=== PATIENT | female | born 2000 | race Caucasian/White ===

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

== ENCOUNTER → 2023-09-17 | Outpatient (CLI) | payer OTHER, SELFPAY ==
[2023-09-23 19:57] LABS: HPV Reflexed? NOT INDICATED
== END | disposition home or self-care (01) ==
LOC: LABSPEC 16:40
PROVIDERS: PCP Pediatrics; Referring Provider Obstetrics & Gynecology; Visit Provider Obstetrics & Gynecology
DX: Z12.4 Encounter for screening for malignant neoplasm of cervix (principal)
CPT/HCPCS: 88175; G0145

== ENCOUNTER 2023-10-23 12:15 | Emergency (ER) | payer OTHER, SELFPAY ==
[2023-10-23 12:15] VITALS: BP 105/67; PULSE 87; RESP 16; TEMP 35.6; O2SAT 100; BMI 25.0
--- NOTE | 2023-10-23 12:36 | EDS_ITS ---
HPI <GAGE Bustillos - Last Filed: 10/23/23 15:34> History of Present Illness Chief Complaint: Abd Pain Narrative Narrative: 23-year-old female presents with epigastric pain. Earlier this week her abdomen felt firm after eating she had nausea and felt gaseous. She thought it might be from constipation. She tried to eat more fruits and vegetables and took 1 dose of MiraLAX yesterday. This morning she has not yet eaten but developed epigastric pain and states is the first time it has really felt painful. She has no fever, chills, or vomiting. She has bowel movements every few days and went yesterday but states she has to strain. No melena or hematochezia. No urinary symptoms. No abdominal surgical history. She drinks alcohol on the weekends and last drink about a week ago. PFSH <GAGE Bustillos - Last Filed: 10/23/23 15:34> PFSH Medical History Anxiety Contraceptive management Home Medications ?Medication ?Instructions ?Recorded ?Last Taken ?Type levonorgestrel 14 mcg/24 hr (up to 1 device intrauterine ONCE 08/20/21 Unknown H istory 3 yrs) 13.5 mg intrauterine device (Afia) Allergy/AdvReac Type Severity Reaction Status Date / Time No Known Allergies Allergy Verified 10/23/23 12:16 Family History Grandfather Brain aneurysm Heart disease Social History (Updated 09/17/23 @ 14:25 by Cee Valdes) Smoking Status: Never smoker alcohol intake: never substance use type: does not use caffeine: Yes what type of physical activity do you participate in: weight training frequency: 3-4 times per week seatbelt use: always ROS <GAGE Bustillos - Last Filed: 10/23/23 15:34> ROS ED ROS Narrative Constitutional: Negative for fever, chills, malaise. CVS: Negative for chest pain. Respiratory: Negative for shortness of breath, cough. GI: Positive for abdominal pain, nausea, constipation. Negative vomiting, diarrhea, melena, hematochezia. : Negative for dysuria, hematuria or frequency. EXAM <GAGE Bustillos - Last Filed: 10/23/23 15:34> Physical Exam Narrative Exam Narrative: CONST: Patient sitting in no acute distress. EYES: Normal inspection. NECK: Normal inspection. RESP: No respiratory distress, CTAB. CVS: Regular rate and rhythm, no murmur, no gallop. ABD: Soft with periumbilical tenderness, no guarding or rebound, nondistended, no hepatosplenomegaly. SKIN: Color normal, no rash, warm, dry, intact. EXTREMITIES: Normal appearance, no pedal edema. NEURO: Alert and answering questions appropriately. PSYCH: Normal affect. Const Vital Signs: 10/23/23 12:15 10/23/23 14:15 Temperature 96.1 F L 97.8 F Temperature Source Temporal Pulse Rate 87 80 Respiratory Rate 16 16 Blood Pressure 105/67 121/74 H Blood Pressure Mean 79 89 Pulse Ox 100 100 Oxygen Delivery Method Room Air <Dr. You Johnson DO - Last Filed: 10/23/23 14:13> Physical Exam Const Vital Signs: 10/23/23 12:15 10/23/23 14:15 Temperature 96.1 F L 97.8 F Temperature Source Temporal Pulse Rate 87 80 Respiratory Rate 16 16 Blood Pressure 105/67 121/74 H Blood Pressure Mean 79 89 Pulse Ox 100 100 Oxygen Delivery Method Room Air MDM <GAGE Bustillos - Last Filed: 10/23/23 15:34> [facility] Narrative Medical decision making narrative: History gathered from: Mom and patient Patient reports a few days of mid abdominal pain and history of constipation with last bowel movement yesterday. She appears well nontoxic. Vital signs stable. She has a soft, nonsurgical abdomen. Overall blood work unremarkable. Urinalysis negative. negative. CT scan shows no acute process but does note moderate stool throughout the colon. So far she is only taking 1 dose of MiraLAX yesterday. I recommended she continue this daily, increase fluids and fiber, use Gas-X as needed and follow-up with her primary care doctor. She was discharged in stable condition. I have personally performed a face to face assessment of the patient and have reviewed the XOCHITL Note. I performed a substantive portion of the visit including all aspects of the following. My horton findings include: History is [patient presents with abdominal pain that started this morning. Describes it as kind of mid abdomen. Some nausea but no vomiting. She had somewhat decreased appetite for couple of days. Has been able to eat normally for couple of days because when she eats she feels like she gets very tense in her abdomen and bloated. She denies fevers. Denies vomiting. Denies blood in her stool or black tarry stool. Currently on her menstrual period. She does have an IUD. Denies fevers or chills or sweats.] Exam is [HEENT-PERRLA, EOMI. Cranial nerves II through XII grossly intact. TMs clear. Mucous membranes moist. No adenopathy. Cardiovascular-regular rate and rhythm without murmur or ectopy Lungs-clear to auscultation, chest wall stable without crepitus or subcu emphysema Abdomen-normoactive bowel sounds, soft. Tenderness palpation over the mid abdomen as well as the right lower quadrant with some guarding. There is no rebound, rigidity, or pineal signs. Negative Arroyo sign. Extremities-intact ?4, normal range of motion, normal pulses, atraumatic] Medical Decison Making [IV line established. Patient was given Toradol IV. CBC with differential count of 5.7 hemoglobin 15.5 and platelet count of 254. Chemistries unremarkable. LFTs normal. Lipase normal. Urinalysis normal. hCG was negative. CT scan of the abdomen pelvis with IV contrast was obtained which was essentially unremarkable showed moderate stool and small amount of fluid in the pelvis which could be physiologic. Appendix was normal and no other inflammatory changes noted. This point patient will be discharged to home. She takes MiraLAX currently and she is to continue with that. She can take Gas-X for any gas or cramping.] Other additions or changes: [None] Lab Data Labs: Laboratory Results - last 24 hr 10/23/23 10/23/23 12:45 12:50 WBC 5.7 RBC 4.76 Hgb 15.5 H Hct 45.1 MCV 94.7 MCH 32.6 H MCHC 34.4 RDW Std Deviation 40.2 RDW Coeff of Alek 11.7 Plt Count 254 MPV 9.6 Immature Gran % (Auto) 0.400 Neut % (Auto) 65.9 Lymph % (Auto) 21.2 Glynn % (Auto) 11.6 H Eos % (Auto) 0.7 Baso % (Auto) 0.2 Absolute Neuts (auto) 3.8 Absolute Lymphs (auto) 1.21 Nucleated RBC % 0 Sodium 138 Potassium 3.5 Chloride 106 Carbon Dioxide 26.0 Anion Gap 6 BUN 8 Creatinine 0.75 Estim Creat Clear Calc 111.15 Est GFR (MDRD) Af Amer 125 Est GFR (MDRD) Non-Af 104 BUN/Creatinine Ratio 10.7 Glucose 88 Calcium 8.6 Total Bilirubin 0.70 AST 13 L ALT 17 Alkaline Phosphatase 70 Total Protein 7.1 Albumin 3.7 Globulin 3.4 Albumin/Globulin Ratio 1.1 Lipase 23 Urine Color Yellow Urine Clarity Clear Urine pH 6.0 Ur Specific [place] 1.010 Urine Protein Negative Urine Glucose (UA) Normal Urine Ketones 50 H Urine Occult Blood 250 H Urine Nitrite Negative Urine Bilirubin Negative Urine Urobilinogen 4 H Ur Leukocyte Esterase Negative Urine RBC 0-5 SEEN Urine WBC 0 SEEN Ur Squamous Epith Cells Not Reportable Urine Bacteria 0 SEEN Urine Mucus 0 SEEN Urine Test Negative Radiography Diagnostic Testing: Clinical Impression(s) from Imaging Studies Abdomen/Pelvis CT 10/23/23 13:13 IMPRESSION: No acute abnormality identified. Moderate stool in the colon. Electronically Signed: Olena Nunez MD at 14:07 EDT , <Dr. You Johnson, DO - Last Filed: 10/23/23 14:13> [facility] Narrative Medical decision making narrative: I have personally performed a face to face assessment of the patient and have reviewed the XOCHITL Note. I performed a substantive portion of the visit including all aspects of the following. My horton findings include: History is [patient presents with abdominal pain that started this morning. Describes it as kind of mid abdomen. Some nausea but no vomiting. She had somewhat decreased appetite for couple of days. Has been able to eat normally for couple of days because when she eats she feels like she gets very tense in her abdomen and bloated. She denies fevers. Denies vomiting. Denies blood in her stool or black tarry stool. Currently on her menstrual period. She does have an IUD. Denies fevers or chills or sweats.] Exam is [HEENT-PERRLA, EOMI. Cranial nerves II through XII grossly intact. TMs clear. Mucous membranes moist. No adenopathy. Cardiovascular-regular rate and rhythm without murmur or ectopy Lungs-clear to auscultation, chest wall stable without crepitus or subcu emphysema Abdomen-normoactive bowel sounds, soft. Tenderness palpation over the mid abdomen as well as the right lower quadrant with some guarding. There is no rebound, rigidity, or pineal signs. Negative Arroyo sign. Extremities-intact ?4, normal range of motion, normal pulses, atraumatic] Medical Decison Making [IV line established. Patient was given Toradol IV. CBC with differential count of 5.7 hemoglobin 15.5 and platelet count of 254. Chemistries unremarkable. LFTs normal. Lipase normal. Urinalysis normal. hCG was negative. CT scan of the abdomen pelvis with IV contrast was obtained which was essentially unremarkable showed moderate stool and small amount of fluid in the pelvis which could be physiologic. Appendix was normal and no other inflammatory changes noted. This point patient will be discharged to home. She takes MiraLAX currently and she is to continue with that. She can take Gas-X for any gas or cramping.] Other additions or changes: [None] Lab Data Attestation: I reviewed the patient's lab results. Labs: Laboratory Results - last 24 hr 10/23/23 10/23/23 12:45 12:50 WBC 5.7 RBC 4.76 Hgb 15.5 H Hct 45.1 MCV 94.7 MCH 32.6 H MCHC 34.4 RDW Std Deviation 40.2 RDW Coeff of Alek 11.7 Plt Count 254 MPV 9.6 Immature Gran % (Auto) 0.400 Neut % (Auto) 65.9 Lymph % (Auto) 21.2 Glynn % (Auto) 11.6 H Eos % (Auto) 0.7 Baso % (Auto) 0.2 Absolute Neuts (auto) 3.8 Absolute Lymphs (auto) 1.21 Nucleated RBC % 0 Sodium 138 Potassium 3.5 Chloride 106 Carbon Dioxide 26.0 Anion Gap 6 BUN 8 Creatinine 0.75 Estim Creat Clear Calc 111.15 Est GFR (MDRD) Af Amer 125 Est GFR (MDRD) Non-Af 104 BUN/Creatinine Ratio 10.7 Glucose 88 Calcium 8.6 Total Bilirubin 0.70 AST 13 L ALT 17 Alkaline Phosphatase 70 Total Protein 7.1 Albumin 3.7 Globulin 3.4 Albumin/Globulin Ratio 1.1 Lipase 23 Urine Color Yellow Urine Clarity Clear Urine pH 6.0 Ur Specific [place] 1.010 Urine Protein Negative Urine Glucose (UA) Normal Urine Ketones 50 H Urine Occult Blood 250 H Urine Nitrite Negative Urine Bilirubin Negative Urine Urobilinogen 4 H Ur Leukocyte Esterase Negative Urine RBC 0-5 SEEN Urine WBC 0 SEEN Ur Squamous Epith Cells Not Reportable Urine Bacteria 0 SEEN Urine Mucus 0 SEEN Urine Test Negative Radiography Diagnostic Testing: Clinical Impression(s) from Imaging Studies Abdomen/Pelvis CT 10/23/23 13:13 IMPRESSION: No acute abnormality identified. Moderate stool in the colon. Electronically Signed: Olena Nunez MD at 14:07 EDT Reading Location ID and State: [facility] / [place] Tel , Service support , Discharge Plan Triage Chief Complaint: Abd Pain ED Midlevel Provider: Damaris Zamora ED Provider: You Johnson Dx/Rx/DC Orders Clinical Impression: Abdominal pain, Constipation Instructions: Abdominal Pain, ED Constipation (Adult) Prescriptions: No Action Afia 14 mcg/24 hrs (3 yrs) 13.5 mg intrauterine device 1 device intrauterine ONCE Rx Instructions: as a single dose Primary Care Provider: Roberto Montes Referrals: Roberto Montes MD [Primary Care Provider] - Activity Restrictions/Additional Instructions: Your blood work and CT scan look normal. There is a moderate amount of stool throughout your colon and she may be having discomfort from constipation. You can continue MiraLAX once daily and increase fiber. Fiber 1 bar or fiber cereal also may be beneficial. Print Language: Qatari Disposition Disposition: Home, Self Care Discharge Date/Time: 10/23/23 14:33
[2023-10-23] MEDS: Ketorolac 15 MG/ML Vial IV (12:46)
[2023-10-23 12:59] LABS: Bacteria 0 SEEN /hpf (None Seen); Mucous, Urine 0 SEEN /hpf (<or=2+); White Blood Cells 0 SEEN /hpf (0-5)
[2023-10-23 13:00] LABS: Absolute Lymphocyte Count 1.21 X10^3/uL (0.83-4.51); Absolute Neutrophil Count 3.8 X10^3/uL (2.0-7.7); Basophil# 0.01 X10^3/uL; Basophil% 0.2 % (0-1); Eosinophil# 0.04 X10^3/uL; Eosinophils% 0.7 % (0-5); Hematocrit 45.1 % (37-47); Hemoglobin 15.5 g/dL (12.0-15.0); Lymphocyte # 1.21 X10^3/ul (0.83-4.51); Lymphocyte % 21.2 % (19-41); Mean Corp Hgb Conc 34.4 g/dL (32-36); Mean Corpuscular Hgb 32.6 pg (27.0-32.0); Mean Corpuscular Volume 94.7 fL (81-99); Mean Platelet Vol. 9.6 fl (6.2-12.0); Monocyte# 0.66 X10^3/uL; Monocyte% 11.6 % (0-10); NRBC Flagged by Analyzer 0 % (0-5); Neutrophil # 3.77 X10^3/uL (2.7-7.7); Neutrophil % 65.9 % (47-70); Platelet Count 254 K/mm3 (150-450); RBC Distribution Width CV 11.7 % (11.6-14.6); RBC Distribution Width SD 40.2 fl (35.1-43.9); Red Blood Count 4.76 M/mm3 (4.2-5.4); White Blood Count 5.7 K/mm3 (4.4-11.0)
[2023-10-23 13:01] LABS: Color, Urine Yellow (Yellow); Glucose, Dipstick Normal (Normal); Ketone-Dipstick 50 mg/dl (Negative); Leukocyte Esterase-Dipstick Negative /ul (Negative); Nitrite-Dipstick Negative (Negative); Occult Blood-Urine 250 /ul (Negative); Protein-Dipstick Negative (Negative); Urine Bilirubin Dipstick Negative (Negative); Urine Clarity Clear (Clear); Urine Urobilinogen 4 mg/dl (Normal)
[2023-10-23 13:07] LABS: Internal QC Validated? YES +Cl - CLEAR BKGD; Pregnancy, Urine Negative Negative; Red Blood Cells-Urine 0-5 SEEN /hpf (0-5)
--- NOTE | 2023-10-23 13:13 | CT_ITS ---
HISTORY: abdominal pain. TECHNIQUE: Helically acquired images were obtained of the abdomen and pelvis after the intravenous administration of 75 mL Isovue-370. A radiation dose optimization technique was used for this scan. 384 images. COMPARISON: None. FINDINGS: LOWER CHEST: Lung bases clear. BOWEL: Bowel including appendix nondilated. Moderate stool in the colon. No focal pericolonic inflammatory change observed. LIVER: No enhancing mass. GALLBLADDER/BILIARY TREE: Gallbladder present. SPLEEN/PANCREAS: Homogeneous and nonenlarged. KIDNEYS/ADRENAL GLANDS: Unremarkable. VESSELS: Normal caliber and contour of the abdominal aorta. PELVIC ORGANS: Intrauterine device in place. Trace free fluid in the pelvis, which can be physiological. BONES: Intact. CT/Abdomen/Pelvis W IV Cont ONLY IMPRESSION: No acute abnormality identified. Moderate stool in the colon. Electronically Signed: Olena Nunez MD at 14:07 EDT ,
[2023-10-23 13:20] LABS: ALB/GLOB Ratio 1.1 RATIO (0.9-2.4); AST(SGOT) 13 U/L (15-37); Alanine Aminotransfer ALT/SGPT 17 U/L (13-56); Albumin, Serum 3.7 g/dL (3.2-5.0); Alkaline Phosphatase 70 U/L (45-117); Anion Gap 6 (5-15); BUN 8 mg/dL (7-18); BUN/Creat Ratio 10.7 RATIO (10-20); Calcium,Total 8.6 mg/dL (8.5-10.1); Chloride 106 mmol/L (98-107); Creatinine, Serum 0.75 mg/dL (0.55-1.02); EST Glomerular Filtration Rate 104 mL/min (>60); Est Glom Filt Rate - Afr Amer 125 mL/min (>60); Estimated Creatinine Clearance 111.15 ml/min; Globulin 3.4 g/dL (2.2-4.2); Glucose 88 mg/dL (74-106); Lipase 23 U/L (13-75); Potassium 3.5 mmol/L (3.5-5.1); Protein, Total 7.1 g/dL (6.4-8.2); Sodium Level 138 mmol/L (136-145)
[2023-10-23 14:15] VITALS: BP 121/74; PULSE 80; RESP 16; TEMP 36.6; O2SAT 100
== END 2023-10-23 14:33 | disposition home or self-care (01) ==
PROVIDERS: Physician Assistant; Emergency Provider Emergency Medicine; PCP Pediatrics; Visit Provider Emergency Medicine
DX: R10.31 Right lower quadrant pain (principal); R10.13 Epigastric pain; K59.00 Constipation, unspecified; Z97.5 Presence of (intrauterine) contraceptive device
CPT/HCPCS: 74177; 80053; 81001; 81025; 83690; 85025; 96374; 99282; Q9967; A4216

== ENCOUNTER 2024-03-25 23:38 | Emergency (ER) | payer OTHER, SELFPAY ==
[2024-03-25 23:39] VITALS: BP 109/70; BP 124/67; PULSE 111; PULSE 117; RESP 16; TEMP 36.5; O2SAT 100; O2SAT 99; BMI 26.6
--- NOTE | 2024-03-25 23:52 | EX.ED.SAOD ---
HPI History of Present Illness Chief Complaint: ETOH Intox Informant: patient and EMS Narrative Narrative: healthy 24-year-old female at about [employer], drank too much alcohol, and EMS was called because friends were having trouble waking her up. For EMS she was responsive. They gave her Zofran. She has vomited twice since then and she states she feels okay otherwise. She is able to tell me that she was [place] [employer] for the democrat, from [place] [employer]. [facility] Medical History Contraceptive management Anxiety Home Medications ?Medication ?Instructions ?Recorded ?Last Taken ?Type levonorgestrel 14 mcg/24 hr (up to 1 device intrauterine ONCE 08/20/21 Unknown History 3 yrs) 13.5 mg intrauterine device (Afia) biotin 5 mg capsule 5 mg PO DAILY 03/26/24 Unknown History Allergy/AdvReac Type Severity Reaction Status Date / Time No Known Allergies Allergy Verified 03/25/24 23:53 Family History Grandfather Brain aneurysm Heart disease Social History Smoking Status: Never smoker alcohol intake: never substance use type: does not use caffeine: Yes what type of physical activity do you participate in: weight training frequency: 3-4 times per week seatbelt use: always ROS ROS ED Constitutional Constitutional ED: Reports lethargy; Denies chills or fever(s) Eyes Eyes: Denies change in vision or diplopia ENT ENT ED: Denies rhinorrhea or sore throat Cardiovascular Cardiovascular: Denies chest pain or palpitations Respiratory/Chest Respiratory/Chest: Denies cough or dyspnea Gastrointestinal Gastrointestinal: Reports nausea and vomiting; Denies abdominal pain or diarrhea Genitourinary Genitourinary ED: Denies dysuria or hematuria Musculoskeletal Musculoskeletal: Denies back pain or neck pain Integumentary Denies abscess or rash Neurologic Neurologic: Denies headache(s), paresthesias or weakness Psychiatric Psychiatric: Denies suicidal thoughts EXAM Physical Exam Const Vital Signs: 03/25/24 23:39 03/25/24 23:39 03/25/24 23:54 Temperature 97.7 F L 97.7 F L Temperature Source Temporal Oral Pulse Rate 117 H 111 H Respiratory Rate 16 16 Respiratory Effort Normal Non-Labored Blood Pressure 124/67 H 109/70 Blood Pressure Mean 86 83 Blood Pressure Source Monitor Blood Pressure Position Semi-Fowlers Blood Pressure Location Right Arm Pulse Ox 99 100 Oxygen Delivery Method Room Air Room Air Room Air 03/26/24 00:39 03/26/24 01:00 03/26/24 02:00 Temperature Temperature Source Pulse Rate 83 92 84 Respiratory Rate 16 16 Respiratory Effort Blood Pressure 98/61 111/73 91/51 L Blood Pressure Mean 73 85 64 Blood Pressure Source Blood Pressure Position Blood Pressure Location Pulse Ox 93 95 91 Oxygen Delivery Method Room Air Room Air Room Air 03/26/24 03:00 03/26/24 04:00 03/26/24 05:00 Temperature Temperature Source Pulse Rate 95 87 70 Respiratory Rate 16 16 16 Respiratory Effort Blood Pressure 99/52 L 105/47 L 116/65 Blood Pressure Mean 67 66 82 Blood Pressure Source Blood Pressure Position Blood Pressure Location Pulse Ox 77 91 93 Oxygen Delivery Method Room Air Room Air Room Air 03/26/24 06:00 03/26/24 06:31 Temperature 98.2 F Temperature Source Pulse Rate 72 102 H Respiratory Rate 16 16 Respiratory Effort Blood Pressure 102/57 L 106/51 L Blood Pressure Mean 72 69 Blood Pressure Source Blood Pressure Position Blood Pressure Location Pulse Ox 92 93 Oxygen Delivery Method Room Air Positive well nourished and well developed Constitutional Narrative: Somnolent, intoxicated, conversive and smiling General Appearance ED: well developed and NAD HEENT Reports moist mucous membranes normocephalic and atraumatic Eyes PERRL and EOMs intact bilaterally Neck full ROM and supple Resp normal respiratory effort and clear to auscultation bilaterally Cardio regular rate, regular rhythm and no murmurs GI non-tender and non-distended Auscultation: normoactive bowel sounds Palpation: soft Back/Spine no CVA tenderness General Back: other FROM Extremity normal to inspection General Extremety ED: Negative for edema, pulses abnormal or tenderness General Extremity: Negative for edema or pulses abnormal Neuro oriented x3, CN's II-XII intact bilaterally and no sensory deficits noted Neuro Narrative: Somnolent but awake. Conversive with me and staff and smiling with her eyes closed. Sensorium / Orientation: awake Motor Exam: strength 5/5 throughout Psych Psych Narrative: Intoxicated but otherwise normal thought processes. Able to converse. Skin no rashes or lesions noted and no wounds MDM MDM MDM Narrative Medical decision making narrative: At initial evaluation patient coherent just intoxicated. After getting antiemetics and resting, she had no more vomiting and rested in the ED. Vital signs normal with normal pupillary exam, not suicidal, no reason to suspect coingestants here at this time. We observed her starting at 0030. A multiple recheck she was sleeping comfortably with stable vital signs, airway, breathing, and pulses. Plan will be to continue observing her until she is either awake enough to ambulate without assistance and have Security or family to take her home. At 0630, patient is awake, conversive, coherent, feeling much better, denies having headache, her vital signs are normal, her mother is here and I spoke with both of them, and she is comfortable taking her back to her dorm. Discharge Plan Triage Chief Complaint: ETOH Intox ED Provider: Remberto Henley Dx/Rx/DC Orders Clinical Impression: Alcohol intoxication Instructions: ED Alcohol Intoxication Prescriptions: No Action Afia 14 mcg/24 hrs (3 yrs) 13.5 mg intrauterine device 1 device intrauterine ONCE Rx Instructions: as a single dose biotin 5 mg capsule 5 mg PO DAILY Primary Care Provider: Care Physician,No Primary Referrals: Roberto Montes MD [Non-Staff] - Print Language: Romanian Disposition Disposition: Home, Self Care
[2024-03-25 23:54] VITALS: O2SAT 100
[2024-03-26] VITALS (8 sets, daily range): BP systolic 91–116; BP diastolic 47–73; PULSE 70–102; RESP 16; TEMP 36.8; O2SAT 77–95
--- OUTSIDE RECORDS SUMMARY | 2024-03-26 00:16 | XMS RPT_ITS | CCD ---
Author Organization [facility] Inform ion Partnership [facility] Care Team Providers Care Tire Room Supervisor Name Role Phone EMILY CANCHOLA Referring Unavailable EMILY CANCHOLA Primary Care Unavailable EMILY CANCHOLA Admitting Unavailable Gloria Padron MD Primary Care Provider Gloria Padron MD Primary Care Provider CINDI GODOY Attending Unavailable GLORIA PADRON Primary Care Unavailable GLORIA PADRON Primary Care Unavailable Medications Current Medications Medication Drug Class(es) Dates Sig (Normalized) Sig (Original) 200 actuat albuterol 0.09 mg/actuat dry powder inhaler (2 sources) beta2-Adrenergic Agonist Start: 05-03-2019 albuterol sulfate (PROAIR RESPICLICK) 90 mcg/actuation aepb 2 inhalations every 4 hours prn cough/wheeze. May use 15 minutes prior to exercise. 1 Inhaler 0 05/03/2019 Active Comment on above: 2 inhalations every 4 hours prn cough/wheeze. May use 15 minutes prior to exercise. 21 day ethinyl estradiol 0.032387 mg/hr / etonogestrel 0.005 mg/hr vaginal system (2 sources) Progestin, Estrogen Etonogestrel-Ethin yl Estradiol (NUVARING) 0.12-0.015 mg/24 hr vaginal ring Use 1 Each vaginally as directed. Insert vaginally and leave in place for 3 consecutive weeks, then remove for 1 week. 0 Active Comment on above: Use 1 Each vaginally as directed. Insert vaginally and leave in place for 3 consecutive weeks, then remove for 1 week. lansoprazole 30 mg delayed release oral capsule (2 sources) Proton Pump Inhibitor Start: 09-08-2018 take 1 capsule by mouth once daily lansoprazole (PREVACID) 30 mg capsule Take 1 capsule by mouth once daily. 90 capsule 0 09/08/2018 Active Comment on above: Take 1 capsule by mo uth once daily. montelukast 10 mg oral tablet (2 sources) Leukotriene Receptor Antagonist Start: 11-27-2019 take 1 tablet by mouth once daily at bedtime montelukast (SINGULAIR) 10 mg tablet TAKE 1 TABLET BY MOUTH EVERYDAY AT BEDTIME 90 tablet 3 11/27/2019 Active Comment on above: TAKE 1 TABLET BY ANUP TH EVERYDAY AT BEDTIME PEDIATRIC MULTIVIT COMB #19/FA (CHILDREN'S MULTI-VIT GUMMIES ORAL) (2 sources) take 2 tablets by mouth once daily PEDIATRIC MULTIVIT COMB #19/FA (CHILDREN'S MULTI-VIT GUMMIES ORAL) Take 2 tablets by mouth once daily. 0 Active Comment on above: Take 2 tablets by mo uth once daily. Problems Problem Classification Problem Date Documented Da te Episodic/Chronic Abdominal pain (2 sources) Generalized abdominal pain; Translations: [Generalized abdominal pain] Onset: 10-23-2023 10-23-2023 Episodic Other upper respiratory infections (1 source) Sore throat symptom; Translations: [Acute pharyngitis, unspecified] 09-24-2023 Episodic Results Test Name Value Interpretation Reference Range Facil ity CNOVon 10-23-2023 CNOV Office Visit ([facility]) TRAVIS SANTIAGO ([id number]) 4 F Date Time Provider Department 10/23/23 12:30 PM CINDI GODOY [facility] During your visit today, we recorded the following information about you: Cindi Godoy APRN.PLASTICS FABRICATOR 10/23/2023 12:13 PM Signed Request to triage patient who presents for abdominal pain. Patient reports worsening pain over the last three days that is worse when walking. Pain is so bad she can not sit up straight without pain increasing. Patient sent to ER for more thorough evaluation. Allergies As of Date: 10/23/2023 (No Known Allergies) Date Reviewed: 09/24/2023 Reviewed by: Karla Munoz - Fully Assessed Primary Visit Diagnosis:Generalize d abdominal pain [R10.84] Prescriptions as of 10/23/2023 - montelukast (SINGULAIR) 10 mg tablet TAKE 1 TABLET BY MOUTH EVERYDAY AT BEDTIME - albuterol sulfate (PROAIR RESPICLICK) 90 mcg/actuation aepb 2 inhalations every 4 hours prn cough/wheeze. May use 15 minutes prior to exercise. - lansoprazole (PREVACID) 30 mg capsule Take 1 capsule by mouth once daily. - Etonogestrel-Ethinyl Estradiol (NUVARING) 0.12-0.015 mg/24 hr vaginal ring Use 1 Each vaginally as directed. Insert vaginally and leave in place for 3 consecutive weeks, then remove for 1 week. - PEDIATRIC MULTIVIT COMB #19/FA (CHILDREN'S MULTI-VIT GUMMIES ORAL) Take 2 tablets by mouth once daily. Problem List As Of Date: 10/23/2023 (None) Disposition: Return if symptoms worsen or fail to improve. Follow-up and Disposition History for Encounter Date Provider Department Center 10/23/2023 [id number] GODOY [facility] Encounter Status:Closed by CINDI GODOY on 10/23/23 [facility] CNOVon 09-24-2023 CNOV Office Visit (UCWSTR) TRAVIS SANTIAGO ([id number]) 4 F Date Time Provider Department 09/24/23 7:00 PM CORNELIO MAHMOOD [facility] During your visit today, we recorded the following information about you: Temperature Pulse Respiration Blood pressure 98.5 degrees 88/minute 16/minute 120/61 Weight 68.8 kg Cornelio Mahmood PA 09/24/2023 7:13 PM Signed This note was created using NoteWriter. Subjective Travis Santiago is a 23 year old female. HPI 23-year-old female presents for sore throat x 2 days. Patient states yesterday she started getting sore throat. She states that her lymph nodes felt swollen. Today she knows she had some white patches on her tonsils. No fevers. No cough, congestion or other URI symptoms. No vomiting or diarrhea. She denies any sick contacts. PAST MEDICAL HISTORY Diagnosis Date NEGATIVE MEDICAL HISTORY PAST SURGICAL HISTORY Procedure Laterality Date NONE ALLERGIES Patient has no known allergies. MEDICATIONS montelukast (SINGULAIR) 10 mg tablet TAKE 1 TABLET BY MOUTH EVERYDAY AT BEDTIME (Patient not taking: Reported on 09/24/2023) albuterol sulfate (PROAIR RESPICLICK) 90 mcg/actuation aepb 2 inhalations every 4 hours prn cough/wheeze. May use 15 minutes prior to exercise. lansoprazole (PREVACID) 30 mg capsule Take 1 capsule by mouth once daily. Etonogestrel-Ethinyl Estradiol (NUVARING) 0.12-0.015 mg/24 hr vaginal ring Use 1 Each vaginally as directed. Insert vaginally and leave in place for 3 consecutive weeks, then remove for 1 week. (Patient not taking: Reported on 09/24/2023) PEDIATRIC MULTIVIT COMB #19/FA (CHILDREN'S MULTI-VIT GUMMIES ORAL) Take 2 tablets by mouth once daily. FAMILY HISTORY Problem Relation Age of Onset Aneurysm Paternal Grandfather 37 Social History Tobacco Use Smoking status: Never Smokeless tobacco: Never Review of Systems Constitutional: Negative for chills and fever. HENT: Positive for sore throat. Negative for congestion and ear pain. Respiratory: Negative for cough and shortness of breath. Cardiovascular: Negative for chest pain. Gastrointestinal: Negative for diarrhea and vomiting. Objective BP 120/61 Pulse 88 Temp 36.9 ?C (98.5 ?F) Resp 16 Wt 68.8 kg (151 lb 10.8 oz) LMP 10/14/2018 SpO2 98% Physical Exam Vitals and nursing note reviewed. Constitutional: General: She is not in acute distress. Appearance: Normal appearance. She is not toxic-appearing. HENT: Right Ear: Tympanic membrane and ear canal normal. Left Ear: Tympanic membrane and ear canal normal. Nose: Nose normal. Mouth/Throat: Mouth: Mucous membranes are moist. Pharynx: Uvula midline. Posterior oropharyngeal erythema present. No oropharyngeal exudate. Tonsils: Tonsillar exudate present. No tonsillar abscesses. 2+ on the right. 2+ on the left. Eyes: Conjunctiva/sclera: Conjunctivae normal. Cardiovascular: Rate and Rhythm: Normal rate and regular rhythm. Pulmonary: Effort: Pulmonary effort is normal. Breath sounds: Normal breath sounds. No wheezing, rhonchi or rales. Lymphadenopathy: Cervical: Cervical adenopathy present. Right cervical: Superficial cervical adenopathy present. Left cervical: Superficial cervical adenopathy present. Neurological: Mental Status: She is alert. Assessment and Plan ASSESSMENT/PLAN: 1. Sore throat - ICD9: 462, ICD10: J02.9 - suspect viral - Group A strep molecular testing negative - Discussed supportive care treatment with fluids, rest and analgesia. - The patient may also use warm salt water gargles, throat lozenges and/or OTC throat spray as needed. -Discussed possibility of mono, although patient has only had symptoms x 1 day, test would likely be negative at this point. - Recommend follow-up in 1 week if symptoms do not improve. Diagnosis and treatment plan were discussed and questions were answered to the patient's satisfaction. Pt acknowledged understanding of concepts and follow up plan. Specific signs and symptoms that would indicate the need for higher level of care were discussed in detail warranting prompt ER evaluation. GAGE Parrish Krislyn P, PA 09/24/2023 7:08 PM Signed PHARYNGITIS PATIENT INSTRUCTIONS DESCRIPTION: Inflammation and infection of the pharynx that can be caused by a variety of germs. SIGNS AND SYMPTOMS: -Sore throat. -Swallowing difficulty. -Tickle or lump in the throat. -Fever. -Swollen glands in the neck (sometimes). -Throat may be red or covered with a grayish membrane (sometimes). -Generalized aching. CAUSES: Infection from bacteria, viruses or fungi. PREVENTIVE MEASURES: -Avoid close contact with anyone with a sore throat. -Keep immunizations, including diphtheria, up to date. TREATMENT: -Laboratory throat culture and blood count may be done to determine type of infection. -Home c (more content not included)... Normal [facility] STREP A MOLECULAR (POC)on Procedural Control Valid [facility] Strep A (POCT) Negative Negative [facility] COVID-19/INFLUENZA A,B MOLEC Anurag 06-23-2021 SARS-CoV-2 (COVID-19) Ab IA Ql SARS-COV-2 RNA (SANTHOSH): Detected INFLUENZA A (SANTHOSH): Not Detected INFLUENZA B (SANTHOSH): Not Detected Normal Not Detected [facility] Comment on above: Order Comment: This test was performed under the FDA's Emergency Use Authorization (EUA). Testing was performed using the Samir SARS-CoV-2 RT-PCR AND Influenza A/B assay on the Santhosh Samir 6800 System. This test has not been approved for use in asymptomatic patients and its performance in this patient population has not been evaluated. Negative results do not rule out the presence of SARS-CoV-2/COVID-19, influenza A, and/or influenza B. Fact sheets for this EUA can be found at the following links: For Healthcare Providers: https://www.fda.gov/media/691955/download ?? For Patients: https://www.fda.gov/media/643619/download Performed By: #### L [id number] #### [facility] [address] [place] [address] Jsu Ferreira M.D. [id number] Vital Signs Date Time Vital Sign Value Performing Clinician Neyda jama 09-24-2023 18:58-0400 Body temperature 98.49 [degF] Cornelio Mahmood PA Work Phone: [facility] 09-24-2023 18:58-0400 Body weight 68.8 kg Krevelin Mahmood PA Work Phone: [facility] 09-24-2023 18:58-0400 Diastolic blood pressure 61 mm[Hg] Cornelio Mahmood PA Work Phone: [facility] 09-24-2023 18:58-0400 Heart rate 88 /min Cornelio Mahmood PA Work Phone: [facility] 09-24-2023 18:58-0400 Respiratory rate 16 /min Cornelio ALMONTE Work Phone: [facility] 09-24-2023 18:58-0400 SaO2% (BldA) [Mass fraction] 98 % Cornelio ALMONTE Work Phone: [facility] 09-24-2023 18:58-0400 Systolic blood pressure 120 mm[Hg] Cornelio ALMONTE Work Phone: [facility] Encounters Encounter Date Encounter Type Care Provider Facility Start: 10-23-2023 End: 10-25-2023 ambulatory CINDI GODOY Facility:[facility] Start: 10-23-2023 End: 10-23-2023 Patient encounter procedure Cindi Godoy MOBILE SECURITY ARCHITECT.PLASTICS FABRICATOR Work Phone: [facility] Comment on above: Generalized abdomina l pain (Primary Dx) Start: 09-24-2023 End: 09-24-2023 ambulatory GLORIA Zuleyma VITO Facility:[facility] Start: 09-24-2023 End: 09-24-2023 Patient encounter procedure Cornelio ALMONTE Work Phone: [facility] Comment on above: Sore throat (Primary Dx) Start: 06-23-2021 End: 06-23-2021 ambulatory EMILY Washington SUSHANT [facility] Procedures Date Procedure Procedure Detail Performing Clinician Start: 09-24-2023 STREP A MOLECULAR (POC) [facility] Provider Plan of Treatment Date Care Activity Detail Author Start: 12-28-2024 Urine microalbumin profile DTa P,Tdap,Td Vaccine (7 - Td or Tdap) [facility] Start: 02-06-2024 Influenza vaccination Influenz a Vaccine (Season Ended) [facility] Start: 06-07-2023 Behavioral Health Screening Behavioral Health Screening [facility] Start: 2023 Screening for malign ant neoplasm of cervix Pap Testing [facility] Start: 02-05-2023 Covid-19 Vaccine ( season) Covid-19 Vaccine ( season) [facility] Start: 2020 GC (Gonorrhea) Scree jamie () GC (Gonorrhea) Screening (18-) [facility] Start: 2020 Hepatitis C screening Hepatitis C Sc mary [facility] Start: 2020 HIV screening HIV Screening [facility] Start: 2020 Screening for Chlamy miriam trachomatis Chlamydia Screening (18) [facility] Start: 2018 Meningococcal B Vacc ine: Consider Based On Risk (1 of 2 - Patient Seeks Protection) Meningococcal B Vaccine: Consider Based On Risk (1 of 2 - Patient Seeks Protection) [facility] Start: 2016 Peds To Adult Transi tion Annual Assessment Peds To Adult Transition Annual Assessment [facility] Start: 2014 Peds To Adult Transi tion Initial Discussion Peds To Adult Transition Initial Discussion [facility] Immunizations Immunization Date Immunization Notes Care Provider Nita barbosa 04-26-2018 influenza, injectabl e, quadrivalent, contains preservative Cornelio Mahmood PA Work Phone: [facility] 04-26-2018 meningococcal polysaccharide (groups A, C, Y and W-135) diphtheria toxoid conjugate vaccine (MCV4P) Cornelio ALMONTE Work Phone: [facility] 04-26-2018 influenza virus vacc ine, unspecified formulation Cornelio ALMONTE Work Phone: [facility] 04-02-2017 influenza, injectabl e, quadrivalent, contains preservative Cornelio Abjim PA Work Phone: [facility] 01-04-2017 Human Papillomavirus 9-valent vaccine Cornelio ALMONTE Work Phone: [facility] 12-30-2015 Human Papillomavirus 9-valent vaccine Petersonislyn Abjim ALMONTE Work Phone: [facility] 12-28-2014 meningococcal polysaccharide (groups A, C, Y and W-135) diphtheria toxoid conjugate vaccine (MCV4P) Cornelio ALMONTE Work Phone: [facility] Work Phone: 12-28-2014 tetanus toxoid, redu linnette diphtheria toxoid, and acellular pertussis vaccine, adsorbed Krislyn Aberegg PA Work Phone: [facility] Work Phone: 12-28-2014 varicella virus vaccine Stefan olive Aberegg PA Work Phone: [facility] Work Phone: 07-09-2011 influenza virus vacc ine, live, attenuated, for intranasal use Krislyn Aberegg PA Work Phone: [facility] 03-25-2009 influenza virus vacc ine, live, attenuated, for intranasal use Krislyn Aberegg PA Work Phone: [facility] 05-22-2008 influenza virus vacc ine, live, attenuated, for intranasal use Krislyn Aberegg PA Work Phone: [facility] 11-03-2007 diphtheria, tetanus toxoids and acellular pertussis vaccine Krislyn Aberegg PA Work Phone: [facility] 11-03-2007 measles, mumps and rubella virus vaccine Krislyn Aberegg PA Work Phone: [facility] 11-03-2007 poliovirus vaccine, inactivated Krislyn Aberegg PA Work Phone: [facility] 02-24-2007 haemophilus influenz ae type b vaccine, HbOC conjugate Krislyn Aberegg PA Work Phone: [facility] 02-24-2007 pneumococcal conjuga te vaccine, 7 valent Krislyn Aberegg PA Work Phone: [facility] 02-24-2007 varicella virus vaccine Stefan olive Aberegg PA Work Phone: [facility] 11-28-2003 diphtheria, tetanus toxoids and acellular pertussis vaccine Krislyn Aberegg PA Work Phone: [facility] Work Phone: 2003 haemophilus influenz ae type b conjugate and Hepatitis B vaccine Krislyn Aberegg PA Work Phone: [facility] Work Phone: 2003 measles, mumps and rubella virus vaccine Krislyn Aberegg PA Work Phone: [facility] Work Phone: 2002 diphtheria, tetanus toxoids and acellular pertussis vaccine Krislyn Aberegg PA Work Phone: [facility] Work Phone: 2002 poliovirus vaccine, inactivated Krislyn Aberegg PA Work Phone: [facility] Work Phone: 2002 diphtheria, tetanus toxoids and acellular pertussis vaccine Krislyn Aberegg PA Work Phone: [facility] Work Phone: 2002 haemophilus influenz ae type b conjugate and Hepatitis B vaccine Krislyn Aberegg PA Work Phone: [facility] Work Phone: 2002 poliovirus vaccine, inactivated Krislyn Aberegg PA Work Phone: [facility] Work Phone: 2002 diphtheria, tetanus toxoids and acellular pertussis vaccine Krislyn Aberegg PA Work Phone: [facility] Work Phone: 2002 haemophilus influenz ae type b conjugate and Hepatitis B vaccine Krislyn Aberegg PA Work Phone: [facility] Work Phone: 2002 poliovirus vaccine, inactivated Krislyn Aberegg PA Work Phone: [facility] Work Phone: Payers Date Payer Category Payer Unknown MMO MMO [employer] PPO [id number] 2019-Present [phone] [address] [place] [address] PPO [id number] 2019 Unknown [id number] Social History Date Type Detail Facility Start: 09-24-2023 Tobacco smoking stat us [facility] Never smoked tobacco [facility] Start: 09-24-2023 Tobacco use and exposure Smoke less tobacco non-user [facility] Start: 09-24-2023 Alcohol intake Not Asked Marilee lentz [facility] Start: 05-12-2020 End: 09-24-2023 History of Social function [facility] Start: 05-12-2020 End: 09-24-2023 Tobacco use panel [facility] National Score (1-10 0), lower number is lower risk Not on file [facility] Start: 2002 Sex Assigned At Not on file [facility] Progress note 10-23-2023 Note Date & Type Note Facility 10-23-2023 Note HNO ID: [id number] Author: CINDI GODOY APRN.CNP Service: ? Author Type: Nurse Practitioner Type: Progress Notes Filed: 10/23/2023 12:13 Note Text: Request to triage patient who presents for abdominal pain. Patient reports worsening pain over the last three days that is worse when walking. Pain is so bad she can not sit up straight without pain increasing. Patient sent to ER for more thorough evaluation. [facility] History of Present illness Narrative 10-23-2023 Cindi Godoy APRN.DAVID - 10/23/2023 12:11 PM EDT Note Date & Type Note Facility 10-23-2023 History of Presen t illness Narrative Request to triage patient who presents for abdominal pain. Patient reports worsening pain over the last three days that is worse when walking. Pain is so bad she can not sit up straight without pain increasing. Patient sent to ER for more thorough evaluation. documented in this encounter [facility] Progress note 09-24-2023 Note Date & Type Note Facility 09-24-2023 Note HNO ID: [id number] Author: CORNELIO MAHMOOD PA Service: ? Author Type: Physician Dairy Chemist Type: Progress Notes Filed: 09/24/2023 19:13 Note Text: This note was created using YouStream [employer] Highlightsriter. Subjective Travis Santiago is a 23 year old female. HPI 23-year-old female presents for sore throat x 2 days. Patient states yesterday she started getting sore throat. She states that her lymph nodes felt swollen. Today she knows she had some white patches on her tonsils. No fevers. No cough, congestion or other URI symptoms. No vomiting or diarrhea. She denies any sick contacts. PAST MEDICAL HISTORY Diagnosis Date NEGATIVE MEDICAL HISTORY PAST SURGICAL HISTORY Procedure Laterality Date NONE ALLERGIES Patient has no known allergies. MEDICATIONS montelukast (SINGULAIR) 10 mg tablet TAKE 1 TABLET BY MOUTH EVERYDAY AT BEDTIME (Patient not taking: Reported on 09/24/2023) albuterol sulfate (PROAIR RESPICLICK) 90 mcg/actuation aepb 2 inhalations every 4 hours prn cough/wheeze. May use 15 minutes prior to exercise. lansoprazole (PREVACID) 30 mg capsule Take 1 capsule by mouth once daily. Etonogestrel-Ethinyl Estradiol (NUVARING) 0.12-0.015 mg/24 hr vaginal ring Use 1 Each vaginally as directed. Insert vaginally and leave in place for 3 consecutive weeks, then remove for 1 week. (Patient not taking: Reported on 09/24/2023) PEDIATRIC MULTIVIT COMB #19/FA (CHILDREN'S MULTI-VIT GUMMIES ORAL) Take 2 tablets by mouth once daily. FAMILY HISTORY Problem Relation Age of Onset Aneurysm Paternal Grandfather 37 Social History Tobacco Use Smoking status: Never Smokeless tobacco: Never Review of Systems Constitutional: Negative for chills and fever. HENT: Positive for sore throat. Negative for congestion and ear pain. Respiratory: Negative for cough and shortness of breath. Cardiovascular: Negative for chest pain. Gastrointestinal: Negative for diarrhea and vomiting. Objective BP 120/61 Pulse 88 Temp 36.9 ?C (98.5 ?F) Resp 16 Wt 68.8 kg (151 lb 10.8 oz) LMP 10/14/2018 SpO2 98% Physical Exam Vitals and nursing note reviewed. Constitutional: General: She is not in acute distress. Appearance: Normal appearance. She is not toxic-appearing. HENT: Right Ear: Tympanic membrane and ear canal normal. Left Ear: Tympanic membrane and ear canal normal. Nose: Nose normal. Mouth/Throat: Mouth: Mucous membranes are moist. Pharynx: Uvula midline. Posterior oropharyngeal erythema present. No oropharyngeal exudate. Tonsils: Tonsillar exudate present. No tonsillar abscesses. 2+ on the right. 2+ on the left. Eyes: Conjunctiva/sclera: Conjunctivae normal. Cardiovascular: Rate and Rhythm: Normal rate and regular rhythm. Pulmonary: Effort: Pulmonary effort is normal. Breath sounds: Normal breath sounds. No wheezing, rhonchi or rales. Lymphadenopathy: Cervical: Cervical adenopathy present. Right cervical: Superficial cervical adenopathy present. Left cervical: Superficial cervical adenopathy present. Neurological: Mental Status: She is alert. Assessment and Plan ASSESSMENT/PLAN: 1. Sore throat - ICD9: 462, ICD10: J02.9 - suspect viral - Group A strep molecular testing negative - Discussed supportive care treatment with fluids, rest and analgesia. - The patient may also use warm salt water gargles, throat lozenges and/or OTC throat spray as needed. -Discussed possibility of mono, although patient has only had symptoms x 1 day, test would likely be negative at this point. - Recommend follow-up in 1 week if symptoms do not improve. Diagnosis and treatment plan were discussed and questions were answered to the patient's satisfaction. Pt acknowledged understanding of concepts and follow up plan. Specific signs and symptoms that would indicate the need for higher level of care were discussed in detail warranting prompt ER evaluation. GAGE Parrish [facility] Instructions 09-24-2023 Patient Instructions Note Date & Type Note Facility 09-24-2023 Instructions Cornelio Mahmood PA - 09/24/2023 7:08 PM EDT PHARYNGITIS PATIENT INSTRUCTIONS DESCRIPTION: Inflammation and infection of the pharynx that can be caused by a variety of germs. SIGNS AND SYMPTOMS: -Sore throat. -Swallowing difficulty. -Tickle or lump in the throat. -Fever. -Swollen glands in the neck (sometimes). -Throat may be red or covered with a grayish membrane (sometimes). -Generalized aching. CAUSES: Infection from bacteria, viruses or fungi. PREVENTIVE MEASURES: -Avoid close contact with anyone with a sore throat. -Keep immunizations, including diphtheria, up to date. TREATMENT: -Laboratory throat culture and blood count may be done to determine type of infection. -Home care is usually sufficient. -Use gargles to relieve throat pain. Prepare double strength tea, hot or cold, or a salt-water solution (1 teaspoon salt in 8 oz. warm water). Use to gargle as often as you wish. -Use a cool-mist ultrasonic humidifier to increase air moisture. This will relieve the dry, tight feeling in the throat. Clean humidifier daily. -If the glands are large and tender, apply moist, warm soaks at least 4 times a day for 30 to 60 minutes. The compresses will be more effective if they are kept warm. Be careful not to burn the skin. -Replace your toothbrush. It may be harboring germs. -Until infection is gone, don't share washcloths; or food. MEDICATIONS: -For minor discomfort you may use non-prescription drugs such as acetaminophen. Don't give aspirin to a child for any viral illness. -Non-prescription throat lozenges may help ease discomfort. -Antibiotics or antifungal agents to fight bacterial or fungal infections. Be sure to finish entire course of prescribed antibiotics to avoid complications. ACTIVITY: Limited activity is necessary until symptoms disappear. DIET: Extra fluids are necessary. Drink at least 8 glasses of fluid daily, more for high fevers. If swallowing solid food is painful, try a liquid or soft diet for a few days. NOTIFY OFFICE: -The following occur during treatment: Breathing or swallowing difficulty. Fever; severe headache. Thick mucus drainage from the nose. Productive cough that is discolored. Skin rash. Dark urine. Chest pain. documented in this encounter [facility] History of Present illness Narrative 09-24-2023 Cornelio Mahmood PA - 09/24/2023 7:06 PM EDT Note Date & Type Note Facility 09-24-2023 History of Presen t illness Narrative This note was created using [employer]. Subjective Travis Santiago is a 23 year old female. HPI 23-year-old female presents for sore throat x 2 days. Patient states yesterday she started getting sore throat. She states that her lymph nodes felt swollen. Today she knows she had some white patches on her tonsils. No fevers. No cough, congestion or other URI symptoms. No vomiting or diarrhea. She denies any sick contacts. PAST MEDICAL HISTORY Diagnosis Date NEGATIVE MEDICAL HISTORY PAST SURGICAL HISTORY Procedure Laterality Date NONE ALLERGIES Patient has no known allergies. MEDICATIONS montelukast (SINGULAIR) 10 mg tablet TAKE 1 TABLET BY MOUTH EVERYDAY AT BEDTIME (Patient not taking: Reported on 09/24/2023) albuterol sulfate (PROAIR RESPICLICK) 90 mcg/actuation aepb 2 inhalations every 4 hours prn cough/wheeze. May use 15 minutes prior to exercise. lansoprazole (PREVACID) 30 mg capsule Take 1 capsule by mouth once daily. Etonogestrel-Ethinyl Estradiol (NUVARING) 0.12-0.015 mg/24 hr vaginal ring Use 1 Each vaginally as directed. Insert vaginally and leave in place for 3 consecutive weeks, then remove for 1 week. (Patient not taking: Reported on 09/24/2023) PEDIATRIC MULTIVIT COMB #19/FA (CHILDREN'S MULTI-VIT GUMMIES ORAL) Take 2 tablets by mouth once daily. FAMILY HISTORY Problem Relation Age of Onset Aneurysm Paternal Grandfather 37 Social History Tobacco Use Smoking status: Never Smokeless tobacco: Never Review of Systems Constitutional: Negative for chills and fever. HENT: Positive for sore throat. Negative for congestion and ear pain. Respiratory: Negative for cough and shortness of breath. Cardiovascular: Negative for chest pain. Gastrointestinal: Negative for diarrhea and vomiting. Objective BP 120/61 Pulse 88 Temp 36.9 C (98.5 F) Resp 16 Wt 68.8 kg (151 lb 10.8 oz) LMP 10/14/2018 SpO2 98% Physical Exam Vitals and nursing note reviewed. Constitutional: General: She is not in acute distress. Appearance: Normal appearance. She is not toxic-appearing. HENT: Right Ear: Tympanic membrane and ear canal normal. Left Ear: Tympanic membrane and ear canal normal. Nose: Nose normal. Mouth/Throat: Mouth: Mucous membranes are moist. Pharynx: Uvula midline. Posterior oropharyngeal erythema present. No oropharyngeal exudate. Tonsils: Tonsillar exudate present. No tonsillar abscesses. 2+ on the right. 2+ on the left. Eyes: Conjunctiva/sclera: Conjunctivae normal. Cardiovascular: Rate and Rhythm: Normal rate and regular rhythm. Pulmonary: Effort: Pulmonary effort is normal. Breath sounds: Normal breath sounds. No wheezing, rhonchi or rales. Lymphadenopathy: Cervical: Cervical adenopathy present. Right cervical: Superficial cervical adenopathy present. Left cervical: Superficial cervical adenopathy present. Neurological: Mental Status: She is alert. Assessment and Plan ASSESSMENT/PLAN: 1. Sore throat - ICD9: 462, ICD10: J02.9 - suspect viral - Group A strep molecular testing negative - Discussed supportive care treatment with fluids, rest and analgesia. - The patient may also use warm salt water gargles, throat lozenges and/or OTC throat spray as needed. -Discussed possibility of mono, although patient has only had symptoms x 1 day, test would likely be negative at this point. - Recommend follow-up in 1 week if symptoms do not improve. Diagnosis and treatment plan were discussed and questions were answered to the patient's satisfaction. Pt acknowledged understanding of concepts and follow up plan. Specific signs and symptoms that would indicate the need for higher level of care were discussed in detail warranting prompt ER evaluation. GAGE Parrish documented in this encounter [facility] Evaluation note Note Date & Type Note Facility Evaluation note Diagnosis Sore throat- Primary Acute pharyngitis documented in this encounter [facility] Evaluation note Note Date & Type Note Facility Evaluation note Diagnosis Generalized abdominal pain- Primary Abdominal pain, generalized documented in this encounter [facility] Summary Purpose Family History No Family History Records FoundNo Family History Records Found Advance Directives No Advanced Directives Records FoundNo Advanced Directives Records Found Additional Source Comments INFORMATION SOURCE (unrecogn ized section and content) DATE CREATED AUTHOR 06/24/2021 [facility] DATE CREATED AUTHOR 'S AJAY ELIZABETH 10/25/2023 [facility] Source Comments (unrecognize d section and content) In the event this informatio n is protected by the Federal Confidentiality of Alcohol and Drug Abuse Patient Records regulations: The Federal rules restrict any use of the information to criminally investigate or prosecute any alcohol or drug abuse patient.[facility] the event this information is protected by the Federal Confidentiality of Alcohol and Drug Abuse Patient Records regulations: The Federal rules restrict any use of the information to criminally investigate or prosecute any alcohol or drug abuse patient.[facility] Reason for Visit (unrecogniz ed section and content) Reason Comments Sore Throat Care Teams (unrecognized sec tion and content) Tire Room Supervisor Relationship Specialty Start Date End Date Gloria Padron MD [address] [place] [address] PCP - General Pediatrics 08/27/14 Tire Room Supervisor Relationship Specialty Start Date End Date Gloria Padron MD [address] [place] [address] PCP - General Pediatrics 08/27/14 FOR RECORDS PERTAINING TO PATIENTS WHO ARE OR HAVE BEEN ENROLLED IN A CHEMICAL DEPENDENCY/SUBSTANCEABUSE PROGRAM, SOME INFORMATION MAY BE OMITTED. This clinical summary was aggregated from multiple sources. Caution should be exercised in using it in the provision of clinical care. This summary normalizes information from multiple sources, and as a consequence, information in this document may materially change the coding, format and clinical context of patient data. In addition, data may be omitted in some cases. CLINICAL DECISIONS SHOULD BE BASED ON THE PRIMARY CLINICAL RECORDS. [facility] [facility]. provides no warranty or guarantee of the accuracy or completeness of information in this document.
== END 2024-03-26 06:38 | disposition home or self-care (01) ==
LOC: ED 03-26 00:14
PROVIDERS: Emergency Provider Emergency Medicine; Visit Provider Emergency Medicine
DX: F10.129 Alcohol abuse with intoxication, unspecified (principal); R11.10 Vomiting, unspecified
CPT/HCPCS: 99285

== ENCOUNTER → 2024-08-28 | Outpatient (CLI) | payer OTHER, SELFPAY ==
--- NOTE | 2024-08-28 17:00 | US_ITS ---
EXAM: Pelvic ultrasound CLINICAL HISTORY: IUD check COMPARISON: None available TECHNIQUE: Transabdominal and transvaginal scanning of the pelvis. FINDINGS: Normal intrauterine device location within the uterus. No focal masses otherwise noted in the uterus. Uterus measures up to 6.7 cm. Bilateral ovaries are normal with preserved symmetric vascular flow. Endometrium measures 3 mm. Mild fluid in the cul-de-sac likely physiologic. Bladder is unremarkable. US/Pelvic w/ Transvaginal IMPRESSION: As above. [facility]
== END | disposition home or self-care (01) ==
LOC: US 16:50
PROVIDERS: Referring Provider Obstetrics & Gynecology; Visit Provider Obstetrics & Gynecology
DX: Z97.5 Presence of (intrauterine) contraceptive device (principal)
CPT/HCPCS: 76830; 76856